=== PATIENT | female | born 1935 | race Caucasian/White ===

== ENCOUNTER 2023-08-28 09:33 | Day surgery (SDC) | payer OTHER, SELFPAY ==
--- NOTE | 2023-08-28 10:46 | ITS.CL.CARDI ---
Central Supply Worker - Cardioversion
Cardioversion
Procedure Report:
Date of Procedure:
Procedure: Cardioversion
Indication: Symptomatic atrial fibrillation
Performing Physician: Josué Puri MD
Technique: The patient was brought to the holding area. Signed informed consent was obtained. A time out was called and performed. The patient was anesthetized by the anesthesia service. Anticoagulation status was reviewed and appropriate. R2 pads
were placed anteriorly and posteriorly. A 200 J synchronized biphasic shock restored normal sinus rhythm without significant bradycardia. There were no complications.
Conclusion: Uncomplicated cardioversion from atrial fibrillation to sinus rhythm.
Recommendation: Routine post cardioversion care. Continue mcc anticoagulation.
== END 2023-08-28 11:25 | disposition home or self-care (01) ==
LOC: CATH 09:33
PROVIDERS: ATTENDING PHYSICIAN Internal Medicine Cardiovascular Disease; FAMILY PHYSICIAN Internal Medicine; OTHER PHYSICIAN Internal Medicine Cardiovascular Disease
DX: I48.0 Paroxysmal atrial fibrillation (principal); I10 Essential (primary) hypertension; E78.5 Hyperlipidemia, unspecified; E03.9 Hypothyroidism, unspecified; Z79.01 Long term (current) use of anticoagulants
CPT/HCPCS: 92960; 93005

== ENCOUNTER 2023-12-11 06:48 | Day surgery (SDC) | payer OTHER, SELFPAY ==
[2023-12-11 07:11] VITALS: BMI 23.2
== END 2023-12-11 08:45 | disposition home or self-care (01) ==
LOC: CATH 06:48
PROVIDERS: ATTENDING PHYSICIAN Internal Medicine Cardiovascular Disease; FAMILY PHYSICIAN Internal Medicine; OTHER PHYSICIAN Internal Medicine Cardiovascular Disease
DX: I48.0 Paroxysmal atrial fibrillation (principal); I11.9 Hypertensive heart disease without heart failure; E78.5 Hyperlipidemia, unspecified; E03.9 Hypothyroidism, unspecified; Z79.01 Long term (current) use of anticoagulants
CPT/HCPCS: 92960; 93005

== ENCOUNTER → 2024-01-01 11:56 | Outpatient (REF) | payer OTHER, SELFPAY | LOC: RCS 11:56 | PROVIDERS: ATTENDING PHYSICIAN Internal Medicine Cardiovascular Disease; FAMILY PHYSICIAN Internal Medicine | DX: I48.0 Paroxysmal atrial fibrillation (principal) | CPT/HCPCS: 93306 ==

== ENCOUNTER 2024-08-05 14:57 | Emergency (ER) | payer OTHER, SELFPAY ==
[2024-08-05 14:57] VITALS: BMI 21.3
[2024-08-05 15:07] VITALS: BP 141/98
[2024-08-05 15:29] LABS: % Basophils 0.6 % (0-2); % Eosinophils 1.7 % (0-6); % Immature Granulocytes 0.2 % (0-0.5); % Lymphocytes 34.8 % (20.5-51.1); % Monocytes 10.8 % (1.7-9.3); % Neutrophils 51.9 % (42.2-75.2); Absolute Eosinophils 0.1 10^3/uL (0-0.7); Absolute Lymphocytes 1.6 10^3/uL (1.2-3.4); Absolute Monocytes 0.5 10^3/uL (0.1-0.6); Absolute Neutrophils 2.4 10^3/uL (1.4-6.5); Hematocrit 34.2 % (37.0-47.0); Hemoglobin 12.3 g/dL (12.0-16.0); Mean Corpuscular Hgb 32.8 pg (27.0-31.0); Mean Corpuscular Volume 91.2 fL (81.0-99.0); Mean Platelet Volume 9.7 fL (7.4-10.4); Nucleated Red Blood Cells % 0 %; Platelet Count 189 10^3/uL (130-400); Red Blood Cell Count 3.75 10^6/uL (4.20-5.40); Red Cell Dist. Width 13.1 % (11.5-14.5); White Blood Cell Count 4.6 10^3/uL (4.8-10.8)
[2024-08-05 16:04] LABS: ALT (SGPT) 118 U/L (0-35); AST (SGOT) 89 U/L (14-36); Alkaline Phosphatase 44 U/L (38-126); Blood Urea Nitrogen 15 mg/dl (7-17); Calcium 9.3 mg/dl (8.4-10.2); Carbon Dioxide 23 mmol/L (22-30); Chloride 97 mmol/L (98-107); Glucose 88 mg/dl (70-99); Potassium 3.6 mmol/L (3.5-5.1); Sodium 131 mmol/L (135-145); Total Bilirubin 0.5 mg/dl (0.2-1.3); Total Protein 6.1 g/dl (6.3-8.2); eGFR > 60.00
[2024-08-05 19:49] VITALS: BP 175/101
[2024-08-05 20:00] VITALS: BP 170/108
[2024-08-05] MEDS: NORVASC 2.5 MG PO (20:15)
[2024-08-05 20:30] VITALS: BP 175/101
--- NOTE | 2024-08-09 03:05 | ED.GENMED ---
History of Present Illness
General
Chief Complaint: Abnormal Lab Value
Source: patient and family (Daughter reports patient felt horrible, and was discharged yesterday from [place]. She had low sodium)
Exam Limitations: none
Time Seen by Provider: 08/05/24 19:41
Nursing documentation reviewed up to this point in time: agreed with
History of Present Illness
History of Present Illness:
88-year-old female presents emergency department due to feeling tired and sick. She denies any chest pain or shortness of breath. She is concerned because her blood pressure was elevated. During her recent admission her blood pressure medications
were adjusted. Metoprolol was discontinued.
Past History
Past History
ED Past Medical History: Arrthythmia, CAD, CHF and HTN
ED Past Surgical History: Gynecological (Hysterectomy)
Social History
Tobacco: Non-smoker
Alcohol: None
Drug: None
Review of Systems
Review of Systems
Allergies reviewed?: Yes
All Other Systems: Not applicable
Constitutional: Reports fatigue
EENT: Reports no symptoms
Respiratory: Reports no symptoms
Cardiac: Reports no symptoms
ABD/GI: Reports no symptoms
: Reports no symptoms
Musculoskeletal: Reports no symptoms
Skin: Reports no symptoms
Neurological: Reports weakness
Endocrine: Reports no symptoms
Hematologic/Lymphatic: Reports no symptoms
Psychiatric: Reports no symptoms
Phy Exam
Physical Exam
Physical Exam:
Physical Exam
General: no apparent distress, not acutely ill
Neck: supple. no meningeal signs. normal posterior pharynx
Heart: s1/s2 regular rate and rhythm, no murmur. equal radial
pulses.
HEENT: Pupils equal round reactive to light, EOMI
Lungs: no acute respiratory distress. clear bilaterally
Abdomen: normal bowel sounds. not tender. no CVAT
Neuro: alert and oriented. no focal neurological deficits cranial nerves II through XII intact
Skin: no rash
Psychiatric: well kept. interactive and cooperative
Extremities: no edema. no calf tenderness. negative homans. good distal pulses
Course
Orders/Labs/Results
Orders:
Orders
08/05/24 15:20
CMP [Comprehensive Metabolic Panel] Urgent
Complete Blood Count/With Diff Urgent
08/05/24 20:08
Amlodipine [Norvasc] 2.5 mg PO STAT STA
Abnormal Lab Results
08/05/24
15:20
WBC 4.6 L 10^3/uL
(4.8-10.8)
RBC 3.75 L 10^6/uL
(4.20-5.40)
Hct 34.2 L %
(37.0-47.0)
MCH 32.8 H pg
(27.0-31.0)
Monocytes % 10.8 H %
(1.7-9.3)
Sodium 131 L mmol/L
(135-145)
Chloride 97 L mmol/L
(98-107)
AST 89 H U/L
(14-36)
ALT 118 H U/L
(0-35)
Total Protein 6.1 L g/dl
(6.3-8.2)
08/05/24 15:20
08/05/24 15:20
Vital Signs
Initial and Last Documented VS:
Initial Vital Signs
Temp Pulse Resp BP Pulse Ox
98.5 F 65 18 141/98 99
08/05/24 15:07 08/05/24 15:07 08/05/24 15:07 08/05/24 15:07 08/05/24 15:07
Last Documented Vital Signs
Temp Pulse Resp BP Pulse Ox
98.5 F 61 17 175/101 96
08/05/24 15:07 08/05/24 20:30 08/05/24 20:30 08/05/24 20:30 08/05/24 20:15
MDM/Problems Addressed
Differential Diagnosis Includes:
COVID, hypertensive urgency
MDM/Problems Addressed:
88-year-old female with fatigue, likely related to COVID. Patient does feel improved after observation. Stable for discharge.
Chronic conditions affecting care: Arrhythmia
*Critical Care Note
Total Time (30-74mins, 75-104mins- exclusive of procedures): Not Applicable
Patient Management
Social determinants of health affecting care: Living situation and Strong social support
Escalation/DeEscalation of care consider admission/obs:
Admit not indicated
ED Attending Note
-
Portions of this chart may have been created with voice recognition software.� Occasional wrong word or��sound alike� substitutions may have occurred due to the inherent limitations of voice recognition software.
Discharge Plan
Departure
Patient Disposition: Home (Routine Discharge)
Date of Disposition: 08/05/24
Time of Disposition: 20:11
Patient with high blood pressure during this ER visit?: Yes
Condition: Good
Covid-19: Confirmed COVID-19
Discharge Problem:
COVID-19, Hypertension
Instructions: High blood pressure in adults, COVID-19 - ED discharge instructions, BLOOD PRESSURE
Prescriptions:
New
amlodipine 2.5 mg tablet
2.5 mg PO BID Qty: 30 0RF
No Action
rosuvastatin 10 MG tablet
20 mg PO QPM
Eliquis 5 MG tablet
5 mg PO BID
calcium carbonate-vitamin D3 [Calcium 500 + D] 500 mg-10 mcg (400 unit) Tablet
1 tab PO DAILY
Ocuvite Tablet
2 tab PO DAILY
losartan 50 mg tablet
25 mg PO DAILY
amiodarone 200 mg Tablet
200 mg PO BID
alendronate 70 mg Tablet
70 mg PO QWEEK
levothyroxine 50 MCG tablet
50 mcg PO DAILY
Referrals:
Anali Aggarwal CRNP [Family Provider] - Call in 1-3 days for appt
Interventions
Interventions:
*Risk Screen - Suicide Last Done: 08/05/24 15:07
*General Assessment Last Done: 08/05/24 20:36
*Neglect/Abuse Screening Last Done: 08/05/24 15:07
*ED- Fall Risk Assessment Last Done: 08/05/24 20:36
*ED COVID-19 Vaccine History Last Done: 08/05/24 20:36
*Nursing Disposition Last Done: 08/05/24 20:36
Discharge Date and Time
Discharge Date/Time: 08/05/24 21:03
Print Language: IRISH
== END 2024-08-05 21:03 | disposition home or self-care (01) ==
LOC: EMR 14:57
PROVIDERS: Student in an Organized Health Care Education/Training Program; EMERGENCY PHYSICIAN Emergency Medicine; FAMILY PHYSICIAN Registered Nurse
DX: U07.1 COVID-19 (principal); I11.0 Hypertensive heart disease with heart failure; I25.10 Atherosclerotic heart disease of native coronary artery without angina pectoris; I50.9 Heart failure, unspecified; Z90.710 Acquired absence of both cervix and uterus
CPT/HCPCS: 99283; 80053; 85025

== ENCOUNTER → 2024-10-21 11:16 | Outpatient (REF) | payer OTHER, SELFPAY | LOC: RCS 11:16 | PROVIDERS: ATTENDING PHYSICIAN Internal Medicine Cardiovascular Disease; FAMILY PHYSICIAN Internal Medicine | DX: I48.0 Paroxysmal atrial fibrillation (principal) | CPT/HCPCS: 71046; 93306 ==